=== PATIENT | female | born 1955 | race Caucasian/White ===

== ENCOUNTER 2021-11-03 10:51 | Outpatient (CLI) | payer MEDICARE, SELFPAY ==
--- NOTE | 2021-11-03 10:54 | ECHOD_ITS ---
Reason For Study: ATRIAL FIB-FLUTTER Procedure This was a 2D Doppler, Color Flow transthoracic echocardiogram. Exam performed in department. Left Ventricle Normal LV size. Left ventricular systolic function is normal. The estimated ejection fraction is 55 %. Stage 1 diastolic dysfunction. No regional wall motion abnormalities noted. Right Ventricle Normal RV size. Normal systolic function. Atria Normal left atrium. Normal right atrium. Mitral Valve Normal mitral valve. Tricuspid Valve Normal tricuspid valve. Mild tricuspid valve insufficiency. Aortic Valve Normal aortic valve. Trisinus/trileaflet aortic valve. Mild (1+) aortic valve insufficiency. Pulmonic Valve Normal pulmonic valve. Great Vessels Normal aortic root. The pulmonary artery is normal size. Normal inferior vena cava. Pericardium/Pleural No pericardial effusion. MMode/2D Measurements & Calculations LVIDd: 4.3 cm IVSd: 0.99 cm Ao root diam: 3.2 cm LVIDs: 2.9 cm LVPWd: 1.0 cm RVDd: 3.1 cm FS: 31.7 % LAV(MOD-bp): 48.3 ml LVAd ap4: 27.5 cm2 SV(MOD-sp4): 47.8 ml LAV(MOD-bp) Indexed: 24.4 ml/m2 LVLd ap4: 7.6 cm LAV(MOD-sp2): 47.1 ml EDV(MOD-sp4): 81.0 ml LAV(MOD-sp4): 47.7 ml EDV(sp4-el): 83.9 ml LVAs ap4: 15.5 cm2 LVLs ap4: 6.6 cm ESV(MOD-sp4): 33.3 ml ESV(sp4-el): 30.9 ml EF(MOD-sp4): 58.9 % EF(sp4-el): 63.2 % SV(sp4-el): 53.0 ml LA A4 area: 18.4 cm2 LA dimension(2D): 3.6 cm RA A4 area: 15.3 cm2 Time Measurements MV dec time: 0.30 sec Doppler Measurements & Calculations MV E max cyril: 65.9 cm/sec Lat Peak E' Cyril: 10.5 cm/sec Med Peak E' Cyril: 7.0 cm/sec MV A max cyril: 83.1 cm/sec E/E' lat: 6.3 E/E' med: 9.4 MV E/A: 0.79 Ao V2 max: 132.8 cm/sec AI max cyril: 429.9 cm/sec LV V1 max: 88.9 cm/sec Ao max P.1 mmHg AI max P.9 mmHg LV V1 max P.2 mmHg AI dec slope: 151.3 cm/sec2 AI P1/2t: 832.4 msec PA V2 max: 70.4 cm/sec TR max cyril: 225.8 cm/sec TR max P.4 mmHg ECHO/Echo Complete Interpretation Summary Normal LV size. Left ventricular systolic function is normal. The estimated ejection fraction is 55 %. Stage 1 diastolic dysfunction. Mild (1+) aortic valve insufficiency. Ordering Physician: Derian Flowers Referring Physician: Derian Flowers Performed By: Amina Molina RDCS
== END 2021-11-03 23:59 | disposition home or self-care (01) ==
LOC: CVS 10:52
PROVIDERS: Referring Provider Internal Medicine Cardiovascular Disease; Visit Provider Internal Medicine Cardiovascular Disease
DX: I48.0 Paroxysmal atrial fibrillation (principal)
CPT/HCPCS: 93306

== ENCOUNTER 2022-06-01 09:12 | Emergency (ER) | payer MEDICARE, SELFPAY ==
[2022-06-01 09:13] VITALS: BP 158/96; PULSE 91; RESP 14; TEMP 36.3; O2SAT 99; BMI 32.4
--- NOTE | 2022-06-01 09:15 | EX.ED.DYSGE1 ---
HPI History of Present Illness Chief Complaint: Hypertension Narrative Narrative: 66-year-old female here with concern for hypertension. The patient states she is at 3 to 4 days of lightheadedness, dizziness, fatigue diffuse weakness. She states she started amlodipine as replacement medicine for lisinopril approximate 2 weeks ago. Denies any lower extremity edema. Denies any chest pain or shortness of breath. States that is her constant comes without leaving exacerbating features. The patient denies recent surgery in the last 4 weeks or immobilization in the last 3 days, denies previous diagnosis of DVT or PE, hemoptysis, unilateral leg swelling or malignancy with treatment the last 6 months. No estrogen use noted. No focal weakness, numbness, loss sensation or slurred speech noted. Denies dizziness currently. Old chart reviewed: History of hypertension, atrial fibrillation, hyperlipidemia [facility] Medical History (Updated 06/01/22 @ 10:[address] Roman Hamilton, ) Hypertension Irregular heart beat Allergy/AdvReac Type Severity Reaction Status Date / Time No Known Allergies Allergy Verified 06/01/22 09:15 Social History Smoking Status: Former smoker ROS ROS ED ROS Narrative Constitutional: Denies fever HEENT: Denies sore throat Neck: Denies neck pain Cardiovascular: Notes palpitations, dizziness denies chest pain or shortness of breath Respiratory: Denies shortness of breath GI: Denies nausea vomiting or abdominal pain : Denies changes in urinary habits Musculoskeletal: Denies muscle or joint pain Neurologic: Denies numbness weakness or loss of sensation Skin denies rash EXAM Physical Exam Narrative Exam Narrative: Nursing triage notes reviewed, Vital signs reviewed Constitutional: please see mdm HENT: MMM Eyes: Pupils equal round and reactive to light, Extraocular muscles intact Neck: No stridor, no JVD, full neck ROM Lungs: Clear to auscultation, No wheezing or rales. No increased work of breathing, no conversational dyspnea, no accessory muscle use, no nasal flaring. No respiratory distress noted Heart: Regular rate and rhythm, No murmurs, No rubs and No gallops, 2+ distal pulses (radial, femoral, posterior tibial) in all extremities Abdomen: Soft, there is no tenderness, rigidity, rebound or guarding, no obvious peritoneal signs, no palpable pulsatile abdominal masses, no auscultated abdominal bruit : No CVAT Extremities: No edema Neuro: Alert and oriented x3, neuro exam at baseline, cranial nerves II through XII are intact. No pain with extraocular muscle movement. There is negative test of skew. Normal speech. 5 of 5 strength in upper and lower extremities in flexion extension. Intact sensation to light touch in upper and lower extremity dermatomes. No truncal or extremity ataxia. No dysdiadochokinesia. Normal gait. 2+ reflexes. No meningeal signs. Negative Babinski. NIH of 0 Skin: No rash or lesions noted Const Vital Signs: 06/01/22 09:13 06/01/22 09:18 06/01/22 09:22 Temperature 97.3 F L Temperature Source Temporal Pulse Rate 91 80 Respiratory Rate 14 16 Respiratory Effort Normal Non-Labored Respiratory Pattern Normal Blood Pressure 158/96 H 150/94 H Blood Pressure Mean 116 112 Pulse Ox 99 96 Oxygen Delivery Method Room Air Room Air 06/01/22 09:35 Temperature Temperature Source Pulse Rate Respiratory Rate Respiratory Effort Respiratory Pattern Blood Pressure Blood Pressure Mean Pulse Ox Oxygen Delivery Method Room Air MDM MDM MDM Narrative Medical decision making narrative: 66-year-old female here with elevated blood pressure, dizziness palpitations after initiating amlodipine. The patient was initially mildly hypertensive otherwise hemodynamically stable afebrile and nontoxic-appearing. There are no focal cardiopulmonary abnormalities. Obtained labs, images, EKG to rule out arrhythmia, anemia, electrolyte abnormalities, dehydration, ACS. Labs and images were remarkable for no evidence of significant dehydration, systemic inflammation, significant anemia, myocardial ischemia, pulmonary edema, pneumonia or other etiologies that are life-threatening. Patient symptoms likely secondary to side effects of amlodipine. Suggest the patient stop amlodipine until she can follow-up with her primary doctor for reevaluation and further blood pressure management. Lab Data Attestation: I reviewed the patient's lab results. Lab results narrative: CBC without leukocytosis, severe anemia, no thrombocytopenia. Troponin is negative, no evidence of myocardial ischemia BMP without evidence of significant electrolyte abnormalities, no anion gap, no acute kidney injury. Labs: Laboratory Results - last 24 hr 06/01/22 06/01/22 09:40 09:40 WBC 5.4 RBC 4.02 L Hgb 12.9 Hct 39.6 MCV 98.5 MCH 32.1 H MCHC 32.6 RDW Std Deviation 44.0 H RDW Coeff of Mercy 12.1 Plt Count 250 MPV 10.6 Immature Gran % (Auto) 0.400 Neut % (Auto) 60.1 Lymph % (Auto) 27.1 [place] % (Auto) 9.6 Eos % (Auto) 2.2 Baso % (Auto) 0.6 Absolute Neuts (auto) 3.2 Absolute Lymphs (auto) 1.46 Nucleated RBC % 0 Sodium 139 Potassium 4.2 Chloride 107 Carbon Dioxide 26.0 Anion Gap 6 BUN 14 Creatinine 0.73 Estim Creat Clear Calc 48.45 Est GFR (MDRD) Af Amer 101 Est GFR (MDRD) Non-Af 84 BUN/Creatinine Ratio 19.1 Glucose 99 Calcium 9.3 Troponin I High Sens 12 Radiography Diagnostic Testing: Clinical Impression(s) from Imaging Studies Chest X-Ray 06/01/22 09:40 IMPRESSION: Normal x-ray examination of the chest. Electronically Signed: Miguel Ivy MD at 10:03 EDT , EKG Initial EKG: Comments: EKG with normal sinus rhythm, left axis deviation, normal intervals, no Treatment and Re-Evaluation Narrative: Patient remained hemodynamically stable, afebrile, nontoxic-appearing she is appropriate for discharge home with close PCP follow-up for outpatient blood pressure medication management Discharge Plan Triage Chief Complaint: Hypertension ED Provider: Roman Hamilton Dx/Rx/DC Orders Clinical Impression: Hypertension, Medication side effect Instructions: Controlling High Blood Pressure Primary Care Provider: Jodie Muñoz NP Referrals: Jodie Muñoz NP, ENVIRONMENTAL HEALTH TECHNOLOGIST-C [Primary Care Provider] - Activity Restrictions/Additional Instructions: Please follow-up with your primary doctor at the next available appointment for blood pressure medication management. Please return if you develop loss of consciousness, chest pain, shortness of breath or if your symptoms change or worsen in any way. Disposition Disposition: Home, Self Care
[2022-06-01 09:18] VITALS: BP 150/94; PULSE 80; RESP 16; O2SAT 96
--- NOTE | 2022-06-01 09:35 | EKG12_ITS ---
Test Reason : WEAKNESS Blood Pressure : / mmHG Vent. Rate : 073 BPM Atrial Rate : 073 BPM P-R Int : 144 ms QRS Dur : 084 ms QT Int : 416 ms P-R-T Axes : 048 -02 042 degrees QTc Int : 458 ms Normal sinus rhythm Normal ECG No previous ECGs available Confirmed by MARCELINA SERNA, SRINI ([id number]), index editor WILLIE BAY ([id number]) on 06/05/2022 2:43:11 P M Referred By: Confirmed By:RAUDEL HEWITT MD
--- NOTE | 2022-06-01 09:40 | RAD_ITS ---
STUDY: X-RAY CHEST REASON FOR EXAM: Female, 66 years old. Chest pain TECHNIQUE: Single AP portable view of the chest. COMPARISON: None. FINDINGS: The lungs are clear and expanded. There is no demonstrated pleural abnormality. Normal size heart. Normal mediastinum and genoveva. Normal visualized pulmonary arteries. Normal visualized aortic arch and descending thoracic aorta. There are diffuse degenerative changes of the visualized thoracic spine. Normal visualized ribs, clavicles, and shoulders. There is no demonstrated abnormality of the visualized soft tissue structures of the upper abdomen. RAD/Chest 1 View (Portable) IMPRESSION: Normal x-ray examination of the chest. Electronically Signed: Miguel Ivy MD at 10:03 EDT ,
[2022-06-01 09:51] LABS: Absolute Lymphocyte Count 1.46 X10^3/uL (0.83-4.51); Absolute Neutrophil Count 3.2 X10^3/uL (2.0-7.7); Basophil# 0.03 X10^3/uL; Basophil% 0.6 % (0-1); Eosinophil# 0.12 X10^3/uL; Eosinophils% 2.2 % (0-5); Hematocrit 39.6 % (37-47); Hemoglobin 12.9 g/dL (12.0-15.0); Lymphocyte # 1.46 X10^3/ul (0.83-4.51); Lymphocyte % 27.1 % (19-41); Mean Corp Hgb Conc 32.6 g/dL (32-36); Mean Corpuscular Hgb 32.1 pg (27.0-32.0); Mean Corpuscular Volume 98.5 fL (81-99); Mean Platelet Vol. 10.6 fl (6.2-12.0); Monocyte# 0.52 X10^3/uL; Monocyte% 9.6 % (0-10); NRBC Flagged by Analyzer 0 % (0-5); Neutrophil # 3.24 X10^3/uL (2.7-7.7); Neutrophil % 60.1 % (47-70); Platelet Count 250 K/mm3 (150-450); RBC Distribution Width CV 12.1 % (11.6-14.6); Red Blood Count 4.02 M/mm3 (4.2-5.4); White Blood Count 5.4 K/mm3 (4.4-11.0)
[2022-06-01 10:06] LABS: BUN 14 mg/dL (7-18); Creatinine, Serum 0.73 mg/dL (0.55-1.02); EST Glomerular Filtration Rate 84 mL/min (>60); Estimated Creatinine Clearance 48.45 ml/min; Glucose 99 mg/dL (74-106)
[2022-06-01 10:07] LABS: Anion Gap 6 (5-15); BUN/Creat Ratio 19.1 RATIO (10-20); Calcium,Total 9.3 mg/dL (8.5-10.1); Chloride 107 mmol/L (98-107); Est Glom Filt Rate - Afr Amer 101 mL/min (>60); Potassium 4.2 mmol/L (3.5-5.1); Sodium Level 139 mmol/L (136-145); Troponin-I HS (w/2H Reflex) 12 pg/mL (3.0-54.0)
[2022-06-01 10:46] VITALS: BP 151/90; PULSE 69; RESP 16; O2SAT 96
[2022-06-01 11:46] LABS: Reflex Troponin-HS? (from REC) Y
--- NOTE | 2022-06-01 17:34 | EX.ED.DYSGE1 ---
HPI History of Present Illness Chief Complaint: Hypertension [facility] Medical History (Updated 06/01/22 @ 10:[address] Roman Hamilton, DO) Hypertension Irregular heart beat Allergy/AdvReac Type Severity Reaction Status Date / Time No Known Allergies Allergy Verified 06/01/22 09:15 Social History Smoking Status: Former smoker EXAM Physical Exam Const Vital Signs: 06/01/22 09:13 06/01/22 09:18 06/01/22 09:22 Temperature 97.3 F L Temperature Source Temporal Pulse Rate 91 80 Respiratory Rate 14 16 Respiratory Effort Normal Non-Labored Respiratory Pattern Normal Blood Pressure 158/96 H 150/94 H Blood Pressure Mean 116 112 Pulse Ox 99 96 Oxygen Delivery Method Room Air Room Air 06/01/22 09:35 06/01/22 10:46 Temperature Temperature Source Pulse Rate 69 Respiratory Rate 16 Respiratory Effort Respiratory Pattern Blood Pressure 151/90 H Blood Pressure Mean Pulse Ox 96 Oxygen Delivery Method Room Air MDM MDM Lab Data Labs: Laboratory Results - last 24 hr 06/01/22 06/01/22 09:40 09:40 WBC 5.4 RBC 4.02 L Hgb 12.9 Hct 39.6 MCV 98.5 MCH 32.1 H MCHC 32.6 RDW Std Deviation 44.0 H RDW Coeff of Mercy 12.1 Plt Count 250 MPV 10.6 Immature Gran % (Auto) 0.400 Neut % (Auto) 60.1 Lymph % (Auto) 27.1 [place] % (Auto) 9.6 Eos % (Auto) 2.2 Baso % (Auto) 0.6 Absolute Neuts (auto) 3.2 Absolute Lymphs (auto) 1.46 Nucleated RBC % 0 Sodium 139 Potassium 4.2 Chloride 107 Carbon Dioxide 26.0 Anion Gap 6 BUN 14 Creatinine 0.73 Estim Creat Clear Calc 48.45 Est GFR (MDRD) Af Amer 101 Est GFR (MDRD) Non-Af 84 BUN/Creatinine Ratio 19.1 Glucose 99 Calcium 9.3 Troponin I High Sens 12 Radiography Diagnostic Testing: Clinical Impression(s) from Imaging Studies Chest X-Ray 06/01/22 09:40 IMPRESSION: Normal x-ray examination of the chest. Electronically Signed: Miguel Ivy MD at 10:03 EDT , EKG Initial EKG: Comments: EKG with normal sinus rhythm, left ax deviation, no STEMI Discharge Plan Triage Chief Complaint: Hypertension ED Provider: Roman Hamilton Dx/Rx/DC Orders Clinical Impression: Hypertension, Medication side effect Instructions: Controlling High Blood Pressure Primary Care Provider: Jodie Muñoz NP Referrals: Jodie Muñoz MOTOR COACH OPERATOR, MOTOR COACH OPERATOR-C [Primary Care Provider] - Activity Restrictions/Additional Instructions: Please follow-up with your primary doctor at the next available appointment for blood pressure medication management. Please return if you develop loss of consciousness, chest pain, shortness of breath or if your symptoms change or worsen in any way. Disposition Disposition: Home, Self Care Discharge Date/Time: 06/01/22 10:45
== END 2022-06-01 10:45 | disposition home or self-care (01) ==
PROVIDERS: Emergency Provider Emergency Medicine; PCP Registered Nurse; Visit Provider Emergency Medicine
DX: I10 Essential (primary) hypertension (principal); R42 Dizziness and giddiness; T46.1X5A Adverse effect of calcium-channel blockers, initial encounter; E78.5 Hyperlipidemia, unspecified; Z87.891 Personal history of nicotine dependence
CPT/HCPCS: 71045; 80048; 84484; 85025; 93005; 99284; A4216

== ENCOUNTER → 2025-01-24 | Outpatient (CLI) | payer MEDICARE, SELFPAY ==
--- NOTE | 2025-01-24 13:17 | MRI_ITS ---
PROCEDURE: SPINE LUMBAR (ROUTINE) 01/24/2025 REASON FOR EXAM: PAIN TECHNIQUE: SPINE LUMBAR (ROUTINE) FINDINGS: Degenerative anterolisthesis of L3 upon L4. No compression fracture. Normal conus. Normal abdominal aorta. No paravertebral masses. L1-2 is unremarkable. At L2-3, mild inferior foraminal narrowing on the left without nerve root impingement. At L3-4 moderate spinal stenosis with grade 1 subluxation. Hypertrophic facet arthrosis is present. Negative for visible foraminal nerve root impingement. At L4-5, facet arthrosis and bulging disc with mild canal narrowing. L5-S1 is unremarkable MRI/Spine Lumbar (Routine) IMPRESSION: Moderate spinal stenosis at L3-4. Mild left-sided inferior foraminal narrowing at L2-3 Reading [facility]
== END | disposition home or self-care (01) ==
PROVIDERS: PCP Registered Nurse; Referring Provider Orthopaedic Surgery; Visit Provider Orthopaedic Surgery
DX: M43.06 Spondylolysis, lumbar region (principal); M54.16 Radiculopathy, lumbar region
CPT/HCPCS: 72148

== ENCOUNTER 2025-02-07 11:00 | Outpatient (RCR) | payer MEDICARE, SELFPAY ==
--- NOTE | 2024-12-19 15:16 | HP.PTEVAL ---
Patient's Visit Information Visit Information Visit Information: AP BE[place] is a 69 year old F referred to Physical Therapy by Dr. Larry Linares DO with a diagnosis of L hip OA, L greater trochanteric bursitis. Date of Evaluation: 12/19/24 Physical Therapist: Roc Hidalgo DPT Visit Plan Frequency: 1x/Week Duration: 6 Weeks Plan: 1) L hip mobs (PAs with belt, distraction with flexion, straight long axis distraction) 2) glute max and medius strengthening 3) IT band stretching May use US for greater trochanteric pain if needed for early treatments. Glute bridge and clamshell given has HEP at IE Subjective Subjective: Pt. is here today for her initial evaluation with diagnosis of L hip OA, greater trochanter bursitis. Pt. reports that her pain, is better today. Pt. reports having increased pain with: standing, sitting, getting up and down, lifting her L leg in/out of car. decreases pain: lying down on her back. Pt. reports being very active with walking her dog, but has increased pain with this. She has a long history of L ankle pain due to a previous break, which had to be surgically repaired ~40 years ago. Pt. reports she is unsure if it is her L ankle or her hip causing all of her symptoms. Pt. reports having some mild N/T, but is hard to describe. Pt. also describes a weakness in her L leg at times. Pt. reports some sudden weakness but, never causing falls. Pt. is hopeful to reduce symptoms in order to get back to all recreational and household activities without limitations. Pain L hip: Pain Intensity (Out of 10): 5 Pain Intensity Range: 2 and 8 L ankle: Pain Intensity (Out of 10): 7 Pain Intensity Range: 4 and 8 L greater trochanter: Pain Intensity (Out of 10): 3 Pain Intensity Range: 1 and 8 Objective Objective: POSTURE: Pt. has normal posture in stance. No marked wt. shift noted. PALPATION: Pt. had mild increase at L greater trochanter and L iliopsoas. NEURO: Normal throughout BLEs. ROM: Pt. has normal L ankle ROM without increase in symptoms. L hip: flexion 95deg increase NW, abd 45dg NE, ER 40deg increase NW, IR 20deg increase NW. Normal HS length. Tight IT band on L side. MMT: distal LEs symmetrical strength, except a 10# difference in quad strength. R hip: flexion 40.8#, L hip flexion 18.9# increase NW, L hip abd 23.4#, R abd 33.5#. GAIT: pt. has fairly normal gait pattern. Mild increase NW STAIRS: normal, mild increase in symptoms with L hip flexion. Special Tests L Hip FADDIR - Labrum: Positive L Hip Ankur - IT Band: Positive Balance/Special Test Scores Lower Extremity Functional Score: 29 Goals Goal 1:: LTG: pt. to be I with HEP. Goal Time Frame: 4-6 Weeks Goal 2:: STG: pt. to sleep throughout the night without increase in symptoms. Goal Time Frame: 2-4 Weeks Goal 3:: LTG: pt. to have increased L hip ROM by 25% in all directional allowing for increased tolerance to general mobility. Goal Time Frame: 4-6 Weeks Goal 4:: LTG: pt. to have symmetrical BLEs strength. Goal Time Frame: 4-6 Weeks Goal 5:: LTG: Pt. to be able to ambulate without increase in L groin or greater trochanter pain. Goal Time Frame: 4-6 Weeks Rehabilitation Potential Physical Therapy Diagnosis: Pt. has signs and symptoms consistent with L hip OA and L greater trochanteric bursitis. Pt. has marked hypomobility, and weakness of her LLE and would benefit from PT to address. Rehabilitation Potential: Good Anticipated Interventions Patient/Client Instruction: Educate patient on: Condition, Plan of Care, Risk Factors and Benefits of Fitness Program For the Purpose of:: To improve decision making, To facilitate caregiver knowledge, To improve self management, To prevent re-injury, To improve ability to perform tasks related to life management and To improve tolerance to ADL's Therapeutic Exercise to Include: Strength training, Power training, Flexibilty training, Gait and locomotor training, Passive ROM and Active ROM For the Purpose of:: To decrease pain, To increase ROM, To improve nutrient delivery to tissue, To increase oxygenation perfusion and To improve muscle performance and motor function Manual Therapy Techniques to Include: Mobilization and Soft tissue mobilization For the Purpose of:: To decrease pain, To decrease swelling/inflammation and To increase ROM Ultrasound (thermal/non thermal): Yes For the Purpose of:: To decrease pain and To increase ROM Text: Thank you for the opportunity to evaluate your patient. For Medicare and Medicare HMO plans, please review the plan of care and approve it. It will need to be FAXED BACK to us at [phone] for Medicare purposes. For Medicare only, by signing this I certify the plan of care. Please let me know if there are questions or concerns regarding this plan of care. Physician Signature: Date:
--- NOTE | 2025-01-03 12:34 | HP.PTREVAL ---
Re-Evaluation Intro: Dr. Larry Linares, DO, It has been my pleasure to treat AP BE[place] over the last 3 visits for L hip OA, L greater trochanteric bursitis. Please see the progress note below for an update on the physical therapy plan of care! Subjective Subjective: Pt. reports her symptoms seem to be worsening with her exercises. She reports if she tries to stretch in bothers her groin and any of the exercises seem to increase her bursitis pain. She reprots overall she feels like she is getting worse. Objective Objective/Function: Pt. is still having a lot of pain with any hip ER/IR motions and hip flexion to ~80deg increases pain. Hard to do any stretching of IT or hip ER musculature to aide with greater trochanter bursitis due to causing increased groin pain. Pt. is overall having a lot of difficulty with her pain. She reports that her pain is worsening. We have tried US and mobilizations with some mild relief, but this seem to be worsening. Pt would like to return to physician at this point in time. Plan Plan Plan: 1) L hip mobs (PAs with belt, distraction with flexion, straight long axis distraction) 2) glute max and medius strengthening 3) IT band stretching May use US for greater trochanteric pain if needed for early treatments. Pt is going to return to physician to see if some other treatment/evaluation is needed. Balance/Gait/Functional tests Balance/Special Test Scores Lower Extremity Functional Score: 29 Goals Goals Goal 1:: LTG: pt. to be I with HEP. Goal Time Frame: 4-6 Weeks Goal 2:: STG: pt. to sleep throughout the night without increase in symptoms. Goal Time Frame: 2-4 Weeks Goal 3:: LTG: pt. to have increased L hip ROM by 25% in all directional allowing for increased tolerance to general mobility. Goal Time Frame: 4-6 Weeks Goal 4:: LTG: pt. to have symmetrical BLEs strength. Goal Time Frame: 4-6 Weeks Goal 5:: LTG: Pt. to be able to ambulate without increase in L groin or greater trochanter pain. Goal Time Frame: 4-6 Weeks Anticipated Interventions Anticipated Interventions Patient/Client Instruction: Educate patient on: Condition, Plan of Care, Risk Factors and Benefits of Fitness Program For the Purpose of:: To improve decision making, To facilitate caregiver knowledge, To improve self management, To prevent re-injury, To improve ability to perform tasks related to life management and To improve tolerance to ADL's Therapeutic Exercise to Include: Strength training, Power training, Flexibilty training, Gait and locomotor training, Passive ROM and Active ROM For the Purpose of:: To decrease pain, To increase ROM, To improve nutrient delivery to tissue, To increase oxygenation perfusion and To improve muscle performance and motor function Manual Therapy Techniques to Include: Mobilization and Soft tissue mobilization For the Purpose of:: To decrease pain, To decrease swelling/inflammation and To increase ROM Ultrasound (thermal/non thermal): Yes For the Purpose of:: To decrease pain and To increase ROM Re-Evaluation Ending Re-evaluation ending: Please do not hesitate to contact me at [phone] by phone or if you have questions or concerns regarding this new plan of care! Sincerely, Roc Hidalgo DPT
--- NOTE | 2025-02-07 12:33 | HP.PTREVAL ---
Re-Evaluation Intro: Dr. Larry Linares, DO, It has been my pleasure to treat [place] [facility] over the last 6 visits for Lumbar radiculopathy. Please see the progress note below for an update on the physical therapy plan of care! Subjective Subjective: Pt reports having 8/10 pain in L LE, mostly in ankle, knee and groin. Pt. reports a throbbing like feeling. Last night had to sleep in recliner which was better. Objective Objective/Function: Pt. is overall not having much change with PT. She has marked groin pain, lateral thigh pain, pain inferior to patella and lateral burgos pain. Her groin pain does seem to get increase with any passive hip flexion, ER, IR and adduction motions. I did some distraction of her hip which did help, but did not last. Initial directional preference with flexion, but did not continue to improve. We went through core strengthening as well, not much result. I trial some mild traction manual some mild relief. At this point not much relief with PT at this point in time. Plan Plan Plan: Pt. to follow up with physician later today. Balance/Gait/Functional tests Balance/Special Test Scores Lower Extremity Functional Score: 29 Goals Goals Goal 1:: LTG: pt. to be I with HEP. Goal Time Frame: 4-6 Weeks Goal 2:: STG: pt. to sleep throughout the night without increase in symptoms. Goal Time Frame: 2-4 Weeks Goal 3:: LTG: pt. to have increased L hip ROM by 25% in all directional allowing for increased tolerance to general mobility. Goal Time Frame: 4-6 Weeks Goal 4:: LTG: pt. to have symmetrical BLEs strength. Goal Time Frame: 4-6 Weeks Goal 5:: LTG: Pt. to be able to ambulate without increase in L groin or greater trochanter pain. Goal Time Frame: 4-6 Weeks Anticipated Interventions Anticipated Interventions Patient/Client Instruction: Educate patient on: Condition, Plan of Care, Risk Factors and Benefits of Fitness Program For the Purpose of:: To improve decision making, To facilitate caregiver knowledge, To improve self management, To prevent re-injury, To improve ability to perform tasks related to life management and To improve tolerance to ADL's Therapeutic Exercise to Include: Strength training, Power training, Flexibilty training, Gait and locomotor training, Passive ROM and Active ROM For the Purpose of:: To decrease pain, To increase ROM, To improve nutrient delivery to tissue, To increase oxygenation perfusion and To improve muscle performance and motor function Manual Therapy Techniques to Include: Mobilization and Soft tissue mobilization For the Purpose of:: To decrease pain, To decrease swelling/inflammation and To increase ROM Ultrasound (thermal/non thermal): Yes For the Purpose of:: To decrease pain and To increase ROM Re-Evaluation Ending Re-evaluation ending: Please do not hesitate to contact me at [phone] by phone or if you have questions or concerns regarding this new plan of care! Sincerely, Roc Hidalgo DPT
== END 2025-02-07 19:00 | disposition home or self-care (01) ==
LOC: PT 11:00
PROVIDERS: PCP Registered Nurse; Referring Provider Orthopaedic Surgery; Visit Provider Orthopaedic Surgery
DX: M16.12 Unilateral primary osteoarthritis, left hip (principal); M70.62 Trochanteric bursitis, left hip
CPT/HCPCS: 97035; 97110; 97140; 97161

== ENCOUNTER → 2025-05-15 | Outpatient (CLI) | payer MEDICARE, SELFPAY ==
--- NOTE | 2025-05-15 10:30 | MRI_ITS ---
PROCEDURE: LOWER EXT JOINT ONLY (ROUTINE) 05/15/2025 REASON FOR EXAM: PAIN TECHNIQUE: Procedure Code: MRILEJ Modality: MR Procedure: LOWER EXT JOINT ONLY (ROUTINE) Multiplanar and multisequence images were obtained without IV contrast administration. COMPARISON: COMPARISON : January 08, 2025 FINDINGS: Bone Marrow: There is no bony contusion or osteochondral defect. Cruciate ligaments. The anterior and posterior cruciate ligaments appear intact Collateral ligaments: The medial collateral ligament appears intact. The lateral collateral ligament complex appears intact Menisci: There is a horizontal tear in the body of the medial meniscus which extends to the tibial surface. The lateral meniscus appears intact. Effusion: There is a trace joint effusion. Soft Tissues: There is a 0.9 x 0.3 cm Temple's cyst. Ligaments and Tendons: The distal quadriceps and patellar tendons appear intact. 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 MRI/Lower Ext Joint Only (Routine) IMPRESSION: There is a horizontal tear in the body of the medial meniscus which extends to the tibial surface. There is a trace joint effusion. There is a 0.9 x 0.3 cm Temple's cyst. 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 Reading Location: [facility]
== END | disposition home or self-care (01) ==
PROVIDERS: PCP Registered Nurse; Referring Provider Orthopaedic Surgery; Visit Provider Orthopaedic Surgery
DX: M25.562 Pain in left knee (principal)
CPT/HCPCS: 73721